=== PATIENT | male | born 1990 | race Caucasian/White ===

== ENCOUNTER 2021-08-03 15:37 | Emergency (ER) | payer SELFPAY ==
[~2021-08-03] VITALS: Ht 193 cm; Wt 120.0 kg
--- NOTE | 2021-08-03 15:53 | ED GI ---
General Stated Complaint: VOMITTING,FATIGUE,WEAKNESS Source of Information: Patient Exam Limitations: No Limitations History of Present Illness Date Seen by Provider: Aug 03, 2021 Time Seen by Provider: 15:39 Initial Comments 31yoM with no pertinent PMH coming in do to nb/nb n/v with nb diarrhea that started Tuesday. Generally the nausea has been getting slightly better. Last vomiting around 2am today. Is consistently having diarrhea after he eats. Has had some chronic abd discomfort which is unchanged. He is not taking any meds. Hasn't seen any doctors yet. A [id number] had similar symptoms at a recent gathering. Denies any fever, chest pain, SOA, dysuria, weakness, numbness, or any other concerns. He has had multiple full meals today without vomiting after. Allergies and Home Medications Allergies Coded Allergies: No Known Drug Allergies (Unverified , 08/03/21) Patient Home Medication List Home Medication List Reviewed: Yes Diphenoxylate HCl/Atropine (Lomotil 2.5-0.025 mg Tablet) 1 Each Tablet, 1 EACH PO Q6H PRN for DIARRHEA Prescribed by: BRANDEN WALLACE on 08/03/21 1621 Ondansetron (Ondansetron Odt) 4 Mg Tab.rapdis, 4 MG PO Q6H PRN for NAUSEA/VOMITING-1ST LINE Prescribed by: BRANDEN WALLACE on 08/03/21 1620 Review of Systems Review of Systems Constitutional: No chills, No fever EENTM: No Blurred Vision Respiratory: Denies Cough, Denies Shortness of Air Cardiovascular: Denies Chest Pain Gastrointestinal: Denies Abdominal Pain; Diarrhea, Nausea, Vomiting Genitourinary: No Symptoms Reported Musculoskeletal: no symptoms reported Skin: no symptoms reported Psychiatric/Neurological: No Symptoms Reported Endocrine: No Symptoms Reported Hematologic/Lymphatic: No Symptoms Reported All Other Systems Reviewed Negative Unless Noted: Yes Past Kwkzreh-Awzhno-Uoisnl Hx Patient Social History Tobacco Use?: No Past Medical History Surgeries: No Physical Exam Vital Signs Vital Signs - First Documented 08/03/21 15:54 Temp 36.6 Pulse 122 Resp 16 B/P (MAP) 147/86 (106) Pulse Ox 97 Capillary Refill : Height/Weight/BMI Height: '" Weight: lbs. oz. kg; BMI Method: General Appearance: WD/WN, no apparent distress HEENT: PERRL/EOMI, normal ENT inspection, pharynx normal Neck: non-tender, full range of motion, supple, normal inspection Respiratory: chest non-tender, lungs clear, normal breath sounds, no respiratory distress, no accessory muscle use Cardiovascular: no edema, no murmur, tachycardia Gastrointestinal: normal bowel sounds, non tender, soft; No distended, No guarding, No rebound Extremities: normal range of motion, non-tender, normal inspection, no pedal edema, no calf tenderness, normal capillary refill Back: normal inspection, no CVA tenderness Neurologic/Psychiatric: no motor/sensory deficits, alert, normal mood/affect Skin: normal color, warm/dry Lymphatic: no adenopathy Progress/Results/Core Measures Results/Orders Lab Results Laboratory Tests Test 08/03/21 15:22 08/03/21 16:03 Range/Units White Blood Count 8.0 4.3-11.0 10^3/uL Red Blood Count 5.74 H 4.30-5.52 10^6/uL Hemoglobin 16.4 13.3-17.7 g/dL Hematocrit 48 40-54 % Mean Corpuscular Volume 84 80-99 fL Mean Corpuscular Hemoglobin 29 25-34 pg Mean Corpuscular Hemoglobin Concent 34 32-36 g/dL Red Cell Distribution Width 13.7 10.0-14.5 % Platelet Count 320 130-400 10^3/uL Mean Platelet Volume 9.2 9.0-12.2 fL Immature Granulocyte % (Auto) 0 % Neutrophils (%) (Auto) 63 42-75 % Lymphocytes (%) (Auto) 28 12-44 % Monocytes (%) (Auto) 5 0-12 % Eosinophils (%) (Auto) 3 0-10 % Basophils (%) (Auto) 1 0-10 % Neutrophils # (Auto) 5.0 1.8-7.8 10^3/uL Lymphocytes # (Auto) 2.2 1.0-4.0 10^3/uL Monocytes # (Auto) 0.4 0.0-1.0 10^3/uL Eosinophils # (Auto) 0.2 0.0-0.3 10^3/uL Basophils # (Auto) 0.1 0.0-0.1 10^3/uL Immature Granulocyte # (Auto) 0.0 0.0-0.1 10^3/uL Sodium Level 139 135-145 MMOL/L Potassium Level 4.0 3.6-5.0 MMOL/L Chloride Level 103 98-107 MMOL/L Carbon Dioxide Level 20 L 21-32 MMOL/L Anion Gap 16 H 5-14 MMOL/L Blood Urea Nitrogen 16 7-18 MG/DL Creatinine 0.84 0.60-1.30 MG/DL Estimat Glomerular Filtration Rate 120 BUN/Creatinine Ratio 19 Glucose Level 166 H 70-105 MG/DL Calcium Level 9.5 8.5-10.1 MG/DL Corrected Calcium 9.1 8.5-10.1 MG/DL Total Bilirubin 0.3 0.1-1.0 MG/DL Aspartate Amino Transf (AST/SGOT) 22 5-34 U/L Alanine Aminotransferase (ALT/SGPT) 47 0-55 U/L Alkaline Phosphatase 44 40-136 U/L Total Protein 7.5 6.4-8.2 GM/DL Albumin 4.5 3.2-4.5 GM/DL My Orders Orders - BRANDEN WALLACE MD Cbc With Automated Diff (08/03/21 15:53) Comprehensive Metabolic Panel (08/03/21 15:53) Influenza A & B Antigens (08/03/21 15:53) Ed Iv/Invasive Line Start (08/03/21 15:53) Ondansetron Injection (Zofran Injectio (08/03/21 16:00) Lactated Ringers (Lr 1000 Ml Iv Solution (08/03/21 16:09) Ketorolac Injection (Toradol Injection) (08/03/21 16:15) D5 Ns 1000 Ml Iv Solution (Dextrose 5%/0 (08/03/21 16:14) Medications Given in ED Current Medications Medications Dose Ordered Sig/Brad Route Start Time Stop Time Status Last Admin Dose Admin Ketorolac Tromethamine 15 mg ONCE ONCE IVP 08/03/21 16:15 08/03/21 16:16 DC 08/03/21 16:19 15 MG Ondansetron HCl 4 mg ONCE ONCE IVP 08/03/21 16:00 08/03/21 16:01 DC 08/03/21 16:13 4 MG Vital Signs/I&O 08/03/21 15:54 Temp 36.6 Pulse 122 Resp 16 B/P (MAP) 147/86 (106) Pulse Ox 97 Progress Progress Note : Progress Note 31-year-old male with above history coming in due to vomiting and diarrhea. He was mildly tachycardic on presentation but otherwise ABCs intact. His abdominal exam is reassuring with no signs of peritonitis. Additionally, his abdominal exam has been very chronic and nonconcerning. I will have him follow-up with his primary regarding this. Basic labs obtained including normal electrolytes and no signs of leukocytosis. An IV was placed and he was given 2 L of IV fluids as well as Zofran for his nausea. His heart rate did come down around 20 beats after that. He has been tolerating p.o. without difficulty. I believe he stable for discharge with outpatient follow-up. He was sent home with strict return precautions Departure Impression Primary Impression: Vomiting and diarrhea Disposition: HOME, SELF-CARE Condition: Stable Departure-Patient Inst. Decision time for Depature: 17:00 Referrals: [facility] [place],LOCAL PHYSICIAN (PCP) Primary Care Physician Patient Instructions: Viral Gastroenteritis, Adult (DC) Add. Discharge Instructions: I sent medicines to your pharmacy to help you with diarrhea as well as to help with nausea. If your abdominal pain changes and becomes more severe or you have any concerns then please come back to the ER. Otherwise please schedule an appointment with a regular doctor to have follow-up. Scripts Diphenoxylate HCl/Atropine (Lomotil 2.5-0.025 mg Tablet) 1 Each Tablet 1 EACH PO Q6H PRN for DIARRHEA for 5 Days, #20 TAB Prov: BRANDEN WALLACE MD 08/03/21 Ondansetron (Ondansetron Odt) 4 Mg Tab.rapdis 4 MG PO Q6H PRN for NAUSEA/VOMITING-1ST LINE for 5 Days, #20 TAB Prov: BRANDEN WALLACE MD 08/03/21 Work/School Note: Work Release Form Date Seen in the Emergency Department: Aug 03, 2021 Return to Work: Aug 04, 2021 Restrictions: Return-No Vomiting(24hrs) BRANDEN WALLACE MD Aug 03, 2021 15:52
[2021-08-03] MEDS ORDERED: D5 NS 1000 ML IV SOLUTION 1,000 ML IV ONE (16:00)
[2021-08-03] MEDS ORDERED: ONDANSETRON 4 MG/2 ML (SDV) Z0FRAN IVP ONE (16:00)
[2021-08-03] MEDS ORDERED: LACTATED RINGERS 1,000 ML IV STA (16:09)
[2021-08-03] MEDS ORDERED: D5 NS 1000 ML IV SOLUTION 1,000 ML IV STA (16:14)
[2021-08-03] MEDS ORDERED: KETOROLAC 30 MG/ML VIAL IVP ONE (16:15)
[2021-08-03 16:19] LABS: BASOPHILS # (AUTO) 0.1 10^3/uL (0.0-0.1); BASOPHILS % (AUTO) 1 % (0-10); EOSINOPHILS # (AUTO) 0.2 10^3/uL (0.0-0.3); EOSINOPHILS % (AUTO) 3 % (0-10); HEMATOCRIT 48 % (40-54); HEMOGLOBIN 16.4 g/dL (13.3-17.7); LYMPHOCYTES # (AUTO) 2.2 10^3/uL (1.0-4.0); LYMPHOCYTES % (AUTO) 28 % (12-44); MEAN CORPUSCULAR HEMOGLOBIN 29 pg (25-34); MEAN CORPUSCULAR HGB CONC 34 g/dL (32-36); MEAN CORPUSCULAR VOLUME 84 fL (80-99); MEAN PLATELET VOLUME 9.2 fL (9.0-12.2); MONOCYTES # (AUTO) 0.4 10^3/uL (0.0-1.0); MONOCYTES % (AUTO) 5 % (0-12); NEUTROPHILS % (AUTO) 63 % (42-75); PLATELET COUNT 320 10^3/uL (130-400)
[2021-08-03] MEDS ORDERED: DIPH1TAB PO (16:20)
[2021-08-03] MEDS ORDERED: ONDA4TAB11 PO (16:20)
[2021-08-03 16:42] LABS: ALBUMIN 4.5 GM/DL (3.2-4.5); BILIRUBIN,TOTAL 0.3 MG/DL (0.1-1.0); CALCIUM 9.5 MG/DL (8.5-10.1); CREATININE SERUM 0.84 MG/DL (0.60-1.30); TOTAL PROTEIN 7.5 GM/DL (6.4-8.2)
[2021-08-03 17:11] VITALS: BP 152/94
== END 2021-08-03 17:00 | disposition home or self-care (01) ==
LOC: ER FS 15:39
DX: R11.2 Nausea with vomiting, unspecified (principal); R19.7 Diarrhea, unspecified
CPT/HCPCS: 36415; 80053; 85025; 87804